=== PATIENT | female | born 1970 | race Caucasian/White ===

== ENCOUNTER 2016-10-06 10:37 | Day surgery (SDC) | payer MEDICARE, MEDICAID ==
[~2016-10-06] VITALS: Ht 160 cm; Wt 128.1 kg
== END 2016-10-06 11:40 | disposition home or self-care (01) ==
LOC: SSS 10:37
DX: G89.29 Other chronic pain (principal); Z53.9 Procedure and treatment not carried out, unspecified reason; M96.1 Postlaminectomy syndrome, not elsewhere classified; M54.17 Radiculopathy, lumbosacral region; Z91.040 Latex allergy status; Z79.899 Other long term (current) drug therapy; Z87.891 Personal history of nicotine dependence; Z90.710 Acquired absence of both cervix and uterus; Z98.890 Other specified postprocedural states